=== PATIENT | male | born 1990 | race Hispanic/Latino ===

== ENCOUNTER 2018-07-09 11:24 | Emergency (ER) | payer OTHER ==
[2018-07-09] MEDS ORDERED: Fluorescein Opthalmic Strip ONE (14:55)
[2018-07-09] MEDS ORDERED: Proparacaine 0.5% Opth 15 ML BOT ONE (14:56)
== END 2018-07-09 15:33 | disposition home or self-care (01) ==
LOC: ERS 11:24
DX: T15.92XA Foreign body on external eye, part unspecified, left eye, initial encounter (principal)
CPT/HCPCS: 65222

== ENCOUNTER 2018-12-07 09:47 | Emergency (ER) | payer OTHER ==
[2018-12-07] MEDS ORDERED: Ondansetron ODT 4 MG TAB ONE (11:22)
--- NOTE | 2018-12-07 11:44 | RAD ---
EXAM: Single view of the abdomen HISTORY: Abdominal pain after lifting a heavy object COMPARISON: None FINDINGS: Single view of the abdomen shows a nonspecific, nonobstructive bowel gas pattern. No suspi cious calcifications are seen. The bones are unremarkable. IMPRESSION: Unremarkable exam
== END 2018-12-07 12:03 | disposition home or self-care (01) ==
LOC: ERS 09:47
DX: R10.33 Periumbilical pain (principal)
CPT/HCPCS: 74018; Q0162

== ENCOUNTER 2019-01-28 10:08 | Day surgery (SDC) | payer OTHER ==
[2019-01-27 10:10] VITALS: BMI 28.3
[~2019-01-28 10:08] MED LIST: Lidocaine 1% PF 5 ML VIAL ONE; PROPOFOL 200 MG/20 ML VIAL ONE
[2019-01-28 10:54] LABS: #Basophils 0.1 thou/uL (0.0-0.2); #Eosinphils 0.1 thou/uL (0.0-0.7); #Lymphocytes 2.6 thou/uL (1.20-3.40); #Monocytes 0.4 thou/uL (0.11-0.59); #Neutrophils 2.9 thou/uL (1.40-6.50); %Basophils 0.9 % (0.0-1.0); %Eosinophils 0.9 % (0.0-10.0); %Lymphocytes 42.9 % (21.0-51.0); %Monocytes 6.8 % (0.0-10.0); %Neutrophils 48.5 % (42.0-75.0); Hemoglobin 15.1 g/dL (14.0-18.0); Mean Corpuscular HGB CONC 34.1 g/dL (32.0-36.0); Mean Corpuscular Hemoglobin 28.4 pg (27.0-31.0); Mean Corpuscular Volume 83.3 fL (78.0-98.0); Mean Platelet Volume 8.6 fL (7.4-10.4); Platelet Count 197 thou/uL (130-400); RBC Distribution Width 12.5 % (11.5-14.5); Red Blood Cell (RBC) Count 5.31 mill/uL (4.70-6.10)
[2019-01-28 11:17] LABS: Anion Gap 14 mmol/L (10-20); BUN (Urea Nitrogen) 12 mg/dL (8.9-20.6); Calc. Creatinine Clearance 128 mL/min (70-130); Carbon Dioxide 24 mmol/L (22-29); Chloride 104 mmol/L (98-107); Estimated GFR-MDRD Greater than 90; Glucose 93 mg/dL (70-105); Potassium 4.2 mmol/L (3.5-5.1); Sodium 138 mmol/L (136-145)
[2019-01-28] MEDS ORDERED: Bupivacaine/Epinephrine 0.25% 30 ML VIAL ONE (13:10)
[2019-01-28] MEDS ORDERED: Midazolam HCl 2 mg/2 ml Vial ONE (14:12)
[2019-01-28] MEDS ORDERED: Fentanyl 100 MCG/2 ML VIAL ONE ×3 (14:12→16:03)
[2019-01-28] MEDS ORDERED: HYDROcodone/Acetaminophen 5/325 mg Tablet ONE (17:09)
--- NOTE | 2019-01-29 10:10 | PDOC.OP ---
Operative Note - Operative Note Operative Note: PROCEDURE: Umbilical hernia repair with mesh DATE OF PROCEDURE: 01/28/2019 SURGEON: Luis Rocha M.D. PREOPERATIVE DIAGNOSIS: Umbilical hernia POSTOPERATIVE DIAGNOSIS: Umbilical hernia HISTORY: Patient with symptomatic umbilical hernia for which operative repair was recommended. PROCEDURE: After informed consent was obtained and appropriate preoperative antibiotic were administered the patient was taken to the operating room, placed in the supine position, and general anesthesia was administered. The abdomen was prepped and draped in standard sterile fashion and local anesthesia infused the skin and subcutaneous tissues overlying the umbilicus. A circumumbilical incision was made and dissection carried down to the hernia sac which was dissected free to the fascia circumferentially. The fascial defect was 1 cm in diameter, but the patient's job requires frequent heavy lifting so the decision was made to repair this with mesh. The hernia was reduced into the abdominal cavity and dissection carried out in the preperitoneal space for several centimeters in each direction from the fascial edge. A 4.3 cm mesh was obtained and placed into the preperitoneal space. The fascia was then closed with [id number] permanent braided suture, incorporating the central strap into the closure. The external portions of the straps were then trimmed and discarded. The subcutaneous tissues were reapproximated with 3-0 Monocryl suture and the skin closed with 4-0 running subcuticular Monocryl suture. Dermabond dressings were placed and once this was dry a pressure dressing was placed. The patient was extubated and taken to the recovery room in good condition. Estimated blood loss minimal. There were no complications. There were no specimens.
== END 2019-01-28 18:55 | disposition home or self-care (01) ==
LOC: SDC 10:08
PROVIDERS: ATTEND Surgery
PROC: 0WUF0JZ Supplement Abdominal Wall with Synthetic Substitute, Open Approach (ICD-10-PCS; principal; 2019-01-28)
DX: K42.9 Umbilical hernia without obstruction or gangrene (principal)
CPT/HCPCS: 80048; 85025; J0690; J2250; J3010

== ENCOUNTER 2019-06-08 08:08 | Outpatient (CLI) | payer OTHER ==
--- NOTE | 2019-06-08 11:27 | CT ---
CT ABDOMEN WITH IV CONTRAST: Date: 06/08/2019 Oral contrast was administered. Multiplanar reconstruction performed. INDICATION: Periumbilical pain. FINDINGS: Lung bases are clear. The liver, spleen, and pancreas appear unremarkable. Stomach and duodenum unremarkable. Adrenal glands normal. Kidneys unremarkable. The visualized small bowel loops appear unremarkable. The visualized colon is unremarkable. Entire co krista and small bowel not evaluated on this abdomen only study. There is evidence of scattered divertic laura in the visualized left sigmoid colon, which is incompletely evaluated. Processes in the lower abd omen and pelvic region are not assessed. There is no evidence of anterior abdominal wall hernia. The aorta is normal caliber. No adenopathy. IMPRESSION: Unremarkable CT abdomen. CT abdomen and pelvis exam is recommended for generalized abdominal pain as the lower abdomen and pelvic structures are not assessed on this study. POS: [facility]
== END 2019-06-08 08:09 | disposition home or self-care (01) ==
LOC: SCSCT 08:08
PROVIDERS: ATTEND Family Medicine
DX: R10.33 Periumbilical pain (principal)
CPT/HCPCS: 74170